=== PATIENT | female | born 1995 | race Asian ===

== ENCOUNTER 2016-08-09 12:08 | Emergency (ER) | payer SELFPAY ==
[2016-08-09 12:19] VITALS: BP 124/79; PULSE 60; TEMP 98; BMI 25.7
--- NOTE | 2016-08-09 12:42 | PDOC ---
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 The patient reports she is currently on her menstrual period. She reports associated abdominal cramping and generalized weakness. The patient reports she consumed the plan B pill several weeks ago, after which she began to experience spotting, dysuria, and increased urinary frequency. The patient states she constantly feels as if her bladder is always full. The patient reports her spotting initially resolved, but yesterday she began to bleed heavily due to menstrual period. She reports taking tylenol last night, with no relief. The patient denies any nausea, vomiting, diarrhea, or constipation.Today, the patient reports she was at work, when she helped lift a 300 pound patient. Since lifting the patient, the patient reports increasingly sharp left sided back pain. She reports her pain is exacerbated when turning her body. The patient denies any fever, chills, cough, headache, or dizziness. The patient denies any recent travel or sick contacts. Allergies: None reported. Past Surgical History: None reported. Social History: Non-smoker. Denies alcohol or drug use. <Jordan Brown - Last Filed: 08/09/16 13:11> <Antonella Dc - Last Filed: 08/10/16 08:47> - General Chief Complaint: Pain, Acute Stated Complaint: LOWER BACK PAIN, ABD PAIN Time Seen by Provider: 08/09/16 12:29 Past History <Jordan Brown - Last Filed: 08/09/16 13:11> - Past Medical History Other medical history: none - Psycho/Social/Smoking Cessation Hx Anxiety: No Suicidal Ideation: No Smoking History: Never smoked Have you smoked in the past 12 months: No Information on smoking cessation initiated: No Hx Alcohol Use: No Drug/Substance Use Hx: No Substance Use Type: None <Antonella Dc - Last Filed: 08/10/16 08:47> - Past Medical History Allergies/Adverse Reactions: Allergies Allergy/AdvReac Type Severity Reaction Status Date / Time No Known Allergies Allergy Verified 08/09/16 12:15 Home Medications: Ambulatory Orders Cephalexin Monohydrate [Keflex -] 500 mg PO BID #14 capsule 08/09/16 Ibuprofen [Motrin -] 600 mg PO TID PRN #21 tablet 08/09/16 Methocarbamol [Robaxin -] 500 mg PO BID PRN #14 tablet 08/09/16 Review of Systems - Review of Systems Able to Perform ROS?: Yes Comments:: 08/09/16 13:11 GENERAL/CONSTITUTIONAL: No fever or chills. No weakness. HEAD, EYES, EARS, NOSE AND THROAT: No change in vision. No ear pain or discharge. No sore throat. CARDIOVASCULAR: No chest pain or shortness of breath. RESPIRATORY: No cough, wheezing, or hemoptysis. GASTROINTESTINAL: +Abdominal pain, +abdominal cramping. No nausea, vomiting, diarrhea or constipation. GENITOURINARY: +Vaginal bleeding, +dysuria, +frequency, +urgency. No hematuria. MUSCULOSKELETAL: +Left sided back pain. No joint or muscle swelling or pain. No neck pain. SKIN: No rash NEUROLOGIC: No headache, vertigo, loss of consciousness, or change in strength/ sensation. ENDOCRINE: No increased thirst. No abnormal weight change. HEMATOLOGIC/LYMPHATIC: No anemia, easy bleeding, or history of blood clots. ALLERGIC/IMMUNOLOGIC: No hives or skin allergy. <Jordan Brown - Last Filed: 08/09/16 13:11> *Physical Exam - Vital Signs Last Vital Signs Temp Pulse Resp BP Pulse Ox 98.0 F 60 18 124/79 100 08/09/16 12:17 08/09/16 12:17 08/09/16 12:17 08/09/16 12:17 08/09/16 12:17 <Jordan Brown - Last Filed: 08/09/16 13:11> - Vital Signs Last Vital Signs Temp Pulse Resp BP Pulse Ox 98.0 F 60 18 124/79 100 08/09/16 12:17 08/09/16 12:17 08/09/16 12:17 08/09/16 12:17 08/09/16 12:17 - Physical Exam Comments: GENERAL: Awake, alert, and fully oriented, in no acute distress HEAD: No signs of trauma EYES: PERRLA, EOMI, sclera anicteric, conjunctiva clear ENT: Auricles normal inspection, hearing grossly normal, nares patent, oropharynx clear without exudates. Moist mucosa NECK: Normal ROM, supple, no lymphadenopathy, JVD, or masses LUNGS: Breath sounds equal, clear to auscultation bilaterally. No wheezes, and no crackles HEART: Regular rate and rhythm, normal S1 and S2, no murmurs, rubs or gallops ABDOMEN: Soft, +suprapubic tenderness, normoactive bowel sounds. No guarding, no rebound. No masses EXTREMITIES: Normal range of motion, no edema. No clubbing or cyanosis. No cords, erythema, or tenderness NEUROLOGICAL: Cranial nerves II through XII grossly intact. Normal speech, normal gait. Motor and sensation intact. SKIN: Warm, Dry, normal turgor, no rashes or lesions noted. SPINE: No midline tenderness. +L lumbar paraspinal soft tissue tenderness. <Antonella Dc - Last Filed: 08/10/16 08:47> Medical Decision Making - Medical Decision Making Symptoms are likely a combination of a low back strain from lifting a heavy patient and lower abdominal pain from UTI. No signs of pyelonephritis- no vomiting, fever, or CVAT. Will treat with keflex. Stable for DC home. <Antonella Dc - Last Filed: 08/10/16 08:47> *DC/Admit/Observation/Transfer - Attestations Scribe Attestion: 08/09/16 13:11 Documentation prepared by Jordan Brown, acting as medical technologist for Antonella Dc MD. <Jordan Brown - Last Filed: 08/09/16 13:11> - Discharge Dispostion Admit: No <Antonella Dc - Last Filed: 08/10/16 08:47> Diagnosis at time of Disposition: Low back pain UTI (urinary tract infection) Qualifiers: Urinary tract infection type: site unspecified Hematuria presence: without hematuria Qualified Code(s): N39.0 - Urinary tract infection, site not specified - Discharge Dispostion Disposition: HOME Condition at time of disposition: Stable - Prescriptions Prescriptions: Cephalexin Monohydrate [Keflex -] 500 mg PO BID #14 capsule Ibuprofen [Motrin -] 600 mg PO TID PRN #21 tablet PRN Reason: Pain Methocarbamol [Robaxin -] 500 mg PO BID PRN #14 tablet PRN Reason: Muscle Spasms - Patient Instructions Printed Discharge Instructions: DI for Low Back Pain, DI for Urinary Tract Infection (UTI)
[2016-08-09 13:41] LABS: URINE APPEARANCE CLEAR; URINE BILIRUBIN NEGATIVE (NEGATIVE); URINE COLOR STRAW; URINE GLUCOSE (UA) NEGATIVE (NEGATIVE); URINE KETONE NEGATIVE (NEGATIVE); URINE NITRITE NEGATIVE (NEGATIVE); URINE PROTEIN NEGATIVE (NEGATIVE); URINE UROBILINOGEN NEGATIVE E.U./dl (0.2-1.0)
[2016-08-09 13:44] LABS: URINE BLOOD 3+ (NEGATIVE); URINE LEUK ESTERASE 3+ (NEGATIVE)
[2016-08-09 13:46] LABS: URINE BACTERIA RARE /hpf (NONE SEEN); URINE RBC 2 /hpf (0-3); URINE WBC 120 /hpf (3-5)
[2016-08-09] MEDS ORDERED: METHOCARBAMOL 500 MG TABLET PO ONE (13:57)
[2016-08-09] MEDS ORDERED: CEPHALEXIN MONOHYDRATE 500 MG CAPSULE (UD) PO ONE (13:57)
[2016-08-09] MEDS ORDERED: IBUPROFEN 600 MG TABLET (FP) PO ONE ×2 (13:57→14:30)
[2016-08-09] MEDS ORDERED: METHOCARBAMOL 500 MG TABLET ONE (14:30)
[2016-08-09] MEDS ORDERED: CEPHALEXIN MONOHYDRATE 250 MG CAPSULE (FP) ONE (14:31)
== END 2016-08-09 15:19 | disposition home or self-care (01) ==
LOC: JER 12:08
DX: N39.0 Urinary tract infection, site not specified (principal); M54.5 Low back pain
CPT/HCPCS: 81003; 81015; 84703; 87086; 87186; 99284-25